=== PATIENT | female | born 1985 | race African-American/Black ===

== ENCOUNTER 2018-11-19 19:02 | Emergency (ER) | payer BC | END 2018-11-19 19:29 | disposition home or self-care (01) | LOC: NAV ERS 19:02 | DX: S09.90XA Unspecified injury of head, initial encounter (principal); F41.9 Anxiety disorder, unspecified; F31.9 Bipolar disorder, unspecified; F17.210 Nicotine dependence, cigarettes, uncomplicated; Y04.0XXA Assault by unarmed brawl or fight, initial encounter | CPT/HCPCS: 99284 ==